=== PATIENT | female | born 1995 | race Caucasian/White ===

== ENCOUNTER 2016-09-14 18:28 | Emergency (ER) | payer OTHER ==
--- NOTE | 2016-09-14 19:32 | UC ---
UC General HPI - HPI Summary HPI Summary: complaint of N/V/D started feeling nauseous and stomach cramping then started to have diarrhea 2 days ago N/V/D continued still having nausea today- vomiting has continued - no diarrhea today has only had coffee today because she has been at work- has been able to eat today tonight she started N/V again denies fever and chills hx of difficulty with bowel movements for 3 years- sees Dr Sarmiento sees OB for menstrual cramping - on depo which has improved her menstrual cramping - History of Current Complaint Stated Complaint: VOMITING Time Seen by Provider: 09/14/16 19:22 Hx Obtained From: Patient - Allergy/Home Medications Allergies/Adverse Reactions: Allergies Allergy/AdvReac Type Severity Reaction Status Date / Time seasonal allergies Allergy Congestion Uncoded 09/14/16 19:48 PMH/Surg Hx/FS Hx/Imm Hx Previously Healthy: No - chronic constipation Endocrine History Of: Denies: Diabetes Cardiovascular History Of: Denies: Hypertension, Pacemaker/ICD Respiratory History Of: Reports: Asthma - Surgical History Surgical History: None - Family History Known Family History: Positive: None, Diabetes Negative: Cardiac Disease, Hypertension - Social History Occupation: Employed Full-time, Student Alcohol Use: None Substance Use Type: None Smoking Status (MU): Never Smoked Tobacco - Immunization History Most Recent Influenza Vaccination: [id number] Vaccination Up to Date: Yes Review of Systems Constitutional: Negative Skin: Negative Eyes: Negative ENT: Negative Respiratory: Negative Cardiovascular: Negative Gastrointestinal: Vomiting, Diarrhea Genitourinary: Negative Motor: Negative Neurovascular: Negative Musculoskeletal: Negative Neurological: Negative Psychological: Negative All Other Systems Reviewed And Are Negative: Yes Physical Exam Triage Information Reviewed: Yes Appearance: No Pain Distress, Well-Nourished Vital Signs Reviewed: Yes Eyes: Positive: Conjunctiva Clear ENT: Positive: Pharynx normal, TMs normal. Negative: Nasal congestion Neck: Positive: No Lymphadenopathy Respiratory: Positive: Lungs clear, Normal breath sounds, No respiratory distress Cardiovascular: Positive: RRR, No Murmur, Pulses Normal Abdomen Description: Positive: Nontender, No Organomegaly, Soft. Negative: CVA Tenderness (R), CVA Tenderness (L), Distended, Guarding Bowel Sounds: Positive: Hyperactive Musculoskeletal: Positive: No Edema Neurological: Positive: Alert Psychological Exam: Normal Skin Exam: Normal Course/Dx - Course Course Of Treatment: exam completed. will treat for gastroenteritis d/t no fever or acute abdominal pain - Differential Dx - Multi-Symptom Provider Diagnoses: gastroenteritis Discharge - Discharge Plan Condition: Stable Disposition: HOME Prescriptions: Ondansetron TAB* [Zofran Tab*] 4 mg PO Q8H PRN #12 tab PRN Reason: Nausea Patient Education Materials: Gastroenteritis (ED) Referrals: Adelaida Laguna MD [Primary Care Provider] - Additional Instructions: GASTROENTERITIS What is Gastroenteritis? Gastroenteritis is an inflammation of the stomach and bowel that is often called the stomach "flu.'' It should only last 1 or 2 days. You usually get gastroenteritis because you've been in contact with someone who's already infected or because you've eaten contaminated food, or drank contaminated water. Many different viruses can cause intestinal problems but the signs and symptoms are usually the same: watery diarrhea, abdominal cramps, and nausea or vomiting. Symptoms Might Include: Abdominal cramps Diarrhea Nausea Vomiting Blood or mucus in stools Muscle aches Headaches Fever Extreme exhaustion Treatment Recommendations: Decrease activity until you feel better or the diarrhea and vomiting are gone. Take clear liquids, such as sofia miky, cola, water, tea, broth, and gelatin, for the first 24 hours or until the diarrhea and vomiting stops. During the next 24 hours you may eat bland foods like cooked cereals, rice, soup , bread, crackers, baked potatoes, eggs, or applesauce. Do not eat fruits, vegetables, fried or spicy foods, bran, candy, dairy products (such as milk or ice cream), apple juice, alcoholic beverages. You may go back to your normal diet after 2 to 3 days. Drink 8 to 12 glasses of liquid a day. Most of the problems with gastroenteritis are caused by loss of water through vomiting and diarrhea. You may take ibuprofen (Motrin, Advil) or acetaminophen (Tylenol) for fever and muscle aches. Call Your Doctor or Return Here IF: Your symptoms last for more than 3 days. You have severe pain in the abdomen (area around the stomach) or rectum. You have a high temperature. You find blood, mucus, or worms in your stool. You have signs of dehydration (water loss), including dry mouth, excessive thirst, crinkled skin, little or no urination, dizziness, or light-headedness. You have any other new symptoms that worry you.
[2016-09-14] MEDS ORDERED: Ondansetron ODT TAB* 4 MG PO ONE ×2 (19:37→19:57)
[2016-09-14 19:48] VITALS: BP 119/64
== END 2016-09-14 20:15 | disposition home or self-care (01) ==
LOC: UCCORT 18:28
DX: K52.9 Noninfective gastroenteritis and colitis, unspecified (principal)
CPT/HCPCS: 99212; A9270-GY; G0463

== ENCOUNTER 2017-08-09 20:44 | Emergency (ER) | payer OTHER ==
[2017-08-09 21:15] VITALS: BP 117/89
[2017-08-09] MEDS ORDERED: predniSONE TAB* 20 MG PO ONE (21:58)
[2017-08-09] MEDS ORDERED: Albuterol/Ipratropium NEB.SOL* Albuterol 2.5 MG/Ipratropium 0.5 MG 3 ML INH ONE (21:58)
[2017-08-09] MEDS ORDERED: Azithromycin TAB* 250 MG PO ONE (21:58)
[2017-08-09] MEDS ORDERED: Albuterol HFA INHALER* 8 gm MDI INH ONE (21:59)
--- NOTE | 2017-08-09 22:00 | UC ---
Respiratory Complaint HPI - HPI Summary HPI Summary: Harsh cough sore throat 1 month ago dx with sinusitis unable to finish Amoxicillin due to nausea - History of Current Complaint Chief Complaint: UCGeneralIllness Stated Complaint: COUGH,CONGESTION Time Seen by Provider: 08/09/17 21:54 Hx Obtained From: Patient Hx Last Menstrual Period: DAY 1 TODAY ?: No Onset/Duration: Gradual Onset, Lasting Weeks, Still Present Timing: Constant Severity Initially: Moderate Severity Currently: Severe Character: Cough: Nonproductive Aggravating Factors: Deep Breaths, Recumbent Position Alleviating Factors: Nothing Associated Signs And Symptoms: Positive: Pleuritic Chest Pain, URI, Nasal Congestion, Sinus Discomfort - Allergies/Home Medications Allergies/Adverse Reactions: Allergies Allergy/AdvReac Type Severity Reaction Status Date / Time seasonal allergies Allergy Congestion Uncoded 08/09/17 21:15 Home Medications: Home Medications Bcp 1 tab PO DAILY 08/09/17 [History Confirmed 08/09/17] Phenylephrine W/ Dm-GG [Mucinex Congestion & Coug 2.5-5-100 mg/5Ml] 1 liq PO DAILY 08/09/17 [History Confirmed 08/09/17] Sertraline* [Zoloft*] 200 mg PO DAILY 08/09/17 [History Confirmed 08/09/17] hydrOXYzine HCL TAB* [Atarax TAB 50 MG *] 100 mg PO BEDTIME PRN 08/09/17 [ History Confirmed 08/09/17] PMH/Surg Hx/FS Hx/Imm Hx Previously Healthy: No Respiratory History: Asthma - Surgical History Surgical History: Yes Surgery Procedure, Year, and Place: WISDOM TEETH EXTRACTIONS - Family History Known Family History: Positive: None, Diabetes Negative: Cardiac Disease, Hypertension - Social History Occupation: Student Lives: With Family Alcohol Use: Occasionally Substance Use Type: None Smoking Status (MU): Never Smoked Tobacco - Immunization History Most Recent Influenza Vaccination: [id number] Vaccination Up to Date: Yes Review of Systems Constitutional: Negative Skin: Negative Eyes: Negative ENT: Sore Throat Respiratory: Cough Cardiovascular: Negative Gastrointestinal: Negative Genitourinary: Negative Motor: Negative Neurovascular: Negative Musculoskeletal: Negative Neurological: Negative Psychological: Negative Is Patient Immunocompromised?: No All Other Systems Reviewed And Are Negative: Yes Physical Exam Triage Information Reviewed: Yes Appearance: Well-Appearing, No Pain Distress, Well-Nourished Vital Signs: Initial Vital Signs Temp 97.9 F 08/09/17 21:00 Pulse 80 08/09/17 21:00 Resp 20 08/09/17 21:00 BP 117/89 08/09/17 21:00 Pulse Ox 100 08/09/17 21:00 Vital Signs Reviewed: Yes Eye Exam: Normal Eyes: Positive: Conjunctiva Clear ENT Exam: Normal ENT: Positive: Normal ENT inspection, Hearing grossly normal, Pharynx normal, TMs normal, Uvula midline. Negative: Nasal congestion, Nasal drainage, Tonsillar swelling, Tonsillar exudate, Trismus, Muffled voice, Hoarse voice, Dental tenderness, Sinus tenderness Dental Exam: Normal Neck exam: Normal Neck: Positive: Supple, Nontender, No Lymphadenopathy Respiratory Exam: Normal Respiratory: Positive: Chest non-tender, Lungs clear, No respiratory distress, No accessory muscle use, Decreased breath sounds Cardiovascular Exam: Normal Cardiovascular: Positive: RRR, No Murmur, Pulses Normal, Brisk Capillary Refill Musculoskeletal Exam: Normal Musculoskeletal: Positive: Strength Intact, ROM Intact, No Edema Neurological Exam: Normal Neurological: Positive: Alert, Muscle Tone Normal Psychological Exam: Normal Skin Exam: Normal UC Diagnostic Evaluation - Laboratory O2 Sat by Pulse Oximetry: 100 Re-Evaluation - Re-Evaluation First Eval Change: Improved - feels better increase aeration after neb Respiratory Course/Dx - Course Course Of Treatment: Prednisone, zithromax albuterol mdi with spacer, increase fluids follow with pcp prn - Differential Dx/Diagnosis Provider Diagnoses: Bronchitis with Bronchospasm Discharge - Discharge Plan Condition: Stable Disposition: HOME Prescriptions: Albuterol HFA INHALER* [Ventolin HFA Inhaler*] 2 puff INH Q4H PRN #1 mdi PRN Reason: cough/chest tightness Azithromycin TAB* [Zithromax TAB (Z-ENMANUEL) 250 mg #6 tabs] 250 mg PO DAILY #4 tab predniSONE TAB* [Deltasone TAB*] 40 mg PO DAILY #9 tab Patient Education Materials: Acute Bronchitis (ED), Bronchospasm (ED), How to Use a Metered-Dose Inhaler and a Spacer (ED) Referrals: Adelaida Laguna MD [Primary Care Provider] - If Needed
== END 2017-08-09 22:35 | disposition home or self-care (01) ==
LOC: UCCORT 20:44
DX: J20.9 Acute bronchitis, unspecified (principal); J45.909 Unspecified asthma, uncomplicated
CPT/HCPCS: 99213; A9270-GY; G0463; J7512

== ENCOUNTER 2017-10-27 15:47 | Emergency (ER) | payer OTHER ==
--- NOTE | 2017-10-27 16:20 | UC ---
UC General HPI - HPI Summary HPI Summary: pt is c/o sudden onset fever, chills, nasal congestion, headache and cough since this past friday. pt also notes she hasn't has a BM for a week and is having abdominal cramping with some nausea. she states this has been going on for about 3 years. she is under the care of Dr Peck who thinks this may be ovarian cyst and/or endometriosis related. she notes that he is monitoring this for now. she has been prescribed miralax in past but hasn't tried it for this bout of constipation. pt offers she recently stopped her BC and may be ovulating making it feel a little worse. no assoc v/d/dysuria or vaginal discharge. - History of Current Complaint Stated Complaint: ABDOMINAL PAIN, FEVER, RESP Time Seen by Provider: 10/27/17 15:59 Hx Obtained From: Patient Hx Last Menstrual Period: DAY 1 TODAY Onset/Duration: Sudden Onset Timing: Constant Aggravating: nothing Alleviating: nothing Associated Signs & Symptoms: Positive: Cough, Fever, Headache. Negative: Diarrhea, Dysuria, SOB, Vomiting - Allergy/Home Medications Allergies/Adverse Reactions: Allergies Allergy/AdvReac Type Severity Reaction Status Date / Time seasonal allergies Allergy Congestion Uncoded 10/27/17 16:05 Home Medications: Home Medications Bupropion XL* [Wellbutrin XL *] 150 mg PO DAILY 10/27/17 [History Confirmed ] Folic Acid TAB* [Folvite TAB*] 1 mg PO DAILY 10/27/17 [History Confirmed ] Phenylephrine/Dm/Acetaminop/GG [Mucinex Fast-Max Cold-Flu Liq] 10 ml PO DAILY PRN 10/27/17 [History Confirmed 10/27/17] Polyethylene Glycol 3350* [Miralax*] 17 gm PO DAILY PRN 10/27/17 [History Confirmed 10/27/17] Vit,Brown 74/Iron/Folic [ Low Iron Tablet] 1 each PO DAILY [History Confirmed 10/27/17] PMH/Surg Hx/FS Hx/Imm Hx Respiratory History: Asthma - Surgical History Surgical History: Yes Surgery Procedure, Year, and Place: WISDOM TEETH EXTRACTIONS - Family History Known Family History: Positive: None, Diabetes Negative: Cardiac Disease, Hypertension - Social History Occupation: Employed Part-time, Student Alcohol Use: Occasionally Substance Use Type: None Smoking Status (MU): Never Smoked Tobacco - Immunization History Most Recent Influenza Vaccination: 1480-0087 Vaccination Up to Date: Yes Review of Systems Constitutional: Fever, Chills Skin: Negative Eyes: Negative ENT: Sinus Congestion Respiratory: Cough Cardiovascular: Negative Gastrointestinal: Negative Genitourinary: Negative Motor: Negative Neurovascular: Negative Musculoskeletal: Negative Neurological: Headache Psychological: Negative Is Patient Immunocompromised?: No All Other Systems Reviewed And Are Negative: Yes Physical Exam Triage Information Reviewed: Yes Appearance: Well-Appearing Vital Signs Reviewed: Yes Eye Exam: Normal ENT: Positive: Pharynx normal, Nasal congestion, TMs normal Neck: Positive: Supple, Nontender, No Lymphadenopathy Respiratory: Positive: Lungs clear, Normal breath sounds, No respiratory distress Cardiovascular: Positive: RRR, No Murmur Abdomen Description: Positive: Nontender, No Organomegaly, Soft. Negative: CVA Tenderness (R), CVA Tenderness (L), Distended, Guarding Bowel Sounds: Positive: Present Musculoskeletal: Positive: No Edema Neurological: Positive: Alert Psychological: Positive: Age Appropriate Behavior Skin Exam: Normal Diagnostics - Laboratory Diagnostic Studies Completed/Ordered: urine hcg and rapid flu are negative Course/Dx - Course Course Of Treatment: the acute complaint was rapid flu neg; however, it is JELENA. there is nothing to suggest a bacterial infection. her abdominal complaint is a chronic issue being monitored by her OB, she does not have an acute abdomen here and the hcg is negative. she may resume her miralax for the constipation. i will refer pt back to her pcp's - Differential Dx - Multi-Symptom Provider Diagnoses: Influenza like illness. chronic abdominal discomfort. constipation. Discharge - Discharge Plan Condition: Stable Disposition: HOME Patient Education Materials: Influenza (DC), Constipation (ED), Abdominal Pain (ED) Referrals: Adelaida Laguna MD [Primary Care Provider] - 5 Days Ramos Peck MD [Medical Doctor] - As Soon As Possible
[2017-10-27 16:29] VITALS: BP 112/69
== END 2017-10-27 17:13 | disposition home or self-care (01) ==
LOC: UCCORT 15:47
DX: R50.9 Fever, unspecified (principal); R09.81 Nasal congestion; R51 Headache; R05 Cough; K59.00 Constipation, unspecified; Z32.02 Encounter for pregnancy test, result negative
CPT/HCPCS: 84702; 87502; 99211; G0463

== ENCOUNTER 2018-01-21 17:00 | Emergency (ER) | payer OTHER ==
[2018-01-21 17:40] VITALS: BP 118/69
--- NOTE | 2018-01-21 18:05 | UC ---
Complaint Female HPI - HPI Summary HPI Summary: Pt c/o urinary frequency, urgency and dysuria X 3 days. Pt also concerned about vaginal yeast infection. Pt discovered she is last night. LMP - History Of Current Complaint Chief Complaint: UCGU Stated Complaint: URINARY (PREG) Time Seen by Provider: 01/21/18 17:48 Hx Obtained From: Patient Hx Last Menstrual Period: 10/31/17, states irregular ?: Yes Onset/Duration: Sudden Onset, Lasting Days, Still Present Timing: Intermittent Severity Initially: Mild Severity Currently: Mild Pain Intensity: 4 Character: Burning Aggravating Factor(s): Urination Associated Signs And Symptoms: Positive: Vaginal Discharge - yellow - Risk Factors Ectopic Risk Factor: Negative Ovarian Torsion Risk Factor: Reproductive Age - Allergies/Home Medications Allergies/Adverse Reactions: Allergies Allergy/AdvReac Type Severity Reaction Status Date / Time seasonal allergies Allergy Congestion Uncoded 01/21/18 17:36 PMH/Surg Hx/FS Hx/Imm Hx Previously Healthy: Yes - Surgical History Surgical History: Yes Surgery Procedure, Year, and Place: WISDOM TEETH EXTRACTIONS - Family History Known Family History: Positive: None, Diabetes Negative: Cardiac Disease, Hypertension - Social History Occupation: Employed Full-time Lives: With Family Alcohol Use: Occasionally Substance Use Type: None Smoking Status (MU): Never Smoked Tobacco Have You Smoked in the Last Year: No - Immunization History Most Recent Influenza Vaccination: 5325-1264 Vaccination Up to Date: Yes Review of Systems Constitutional: Negative Skin: Negative Eyes: Negative ENT: Negative Respiratory: Negative Cardiovascular: Negative Gastrointestinal: Negative Genitourinary: Dysuria, Frequency, Urgency, Vaginal/Penile Discharge Motor: Negative Neurovascular: Negative Musculoskeletal: Negative Neurological: Negative Psychological: Negative Is Patient Immunocompromised?: No All Other Systems Reviewed And Are Negative: Yes Physical Exam Triage Information Reviewed: Yes Appearance: Well-Appearing Vital Signs: Initial Vital Signs Temp 98.8 F 01/21/18 17:33 Pulse 68 01/21/18 17:33 Resp 17 01/21/18 17:33 BP 118/69 01/21/18 17:33 Pulse Ox 99 01/21/18 17:33 Vital Signs Reviewed: Yes Eye Exam: Normal ENT Exam: Normal ENT: Positive: Hearing grossly normal Dental Exam: Normal Neck exam: Normal Respiratory Exam: Normal Cardiovascular Exam: Normal Abdominal Exam: Normal Musculoskeletal Exam: Normal Neurological Exam: Normal Psychological Exam: Normal Skin Exam: Normal Complaint Female Dx - Differential Dx/Diagnosis Differential Diagnosis/HQI/PQRI: , Sexually Transmitted Disease, Urinary Tract Infection Provider Diagnoses: UTI. vaginitis Discharge - Sign-Out/Discharge Documenting (check all that apply): Discharge/Admit/Transfer - Discharge Plan Condition: Stable Disposition: HOME Prescriptions: Cephalexin CAP* [Keflex 500 CAP*] 500 mg PO Q12H #14 cap Miconazole Nitrate [Monistat 3 Combination Pa 200-2 mg-% (9Gm)] 1 kit [facility] BEDTIME #1 kit Patient Education Materials: (ED), Urinary Tract Infection in Women ( ED), Vaginitis (ED) Referrals: Adelaida Laguna MD [Primary Care Provider] - Additional Instructions: Please follow up with your PCP and your OB provider as scheduled or needed. - Billing Disposition and Condition Condition: STABLE Disposition: HOME
== END 2018-01-21 18:24 | disposition home or self-care (01) ==
LOC: UCCORT 17:00
DX: O23.40 Unspecified infection of urinary tract in pregnancy, unspecified trimester (principal); O23.599 Infection of other part of genital tract in pregnancy, unspecified trimester; N76.0 Acute vaginitis; Z3A.00 Weeks of gestation of pregnancy not specified
CPT/HCPCS: 81003; 84702; 87086; 87480; 87491; 87510; 87591; 87660; 99212; G0463

== ENCOUNTER 2018-03-02 17:20 | Emergency (ER) | payer OTHER ==
[2018-03-02 17:41] VITALS: BP 116/73
--- NOTE | 2018-03-02 18:19 | UC ---
Complaint Female HPI - HPI Summary HPI Summary: Pt c/o gradual o nset of left side flank pain, that radiates to LLQ. Pt is 10 weeks . denies, vaginal bleeding or unusual discharge. - History Of Current Complaint Hx Obtained From: Patient Hx Last Menstrual Period: 10/31/17, states irregular ?: Yes Onset/Duration: Gradual Onset, Lasting Days, Still Present, Worse Since Timing: Constant Severity Initially: Mild Severity Currently: Moderate Pain Intensity: 8 Character: Dull, Colicy Aggravating Factor(s): Nothing Alleviating Factor(s): Nothing Associated Signs And Symptoms: Positive: Back Pain - Risk Factors Ectopic Risk Factor: Negative Ovarian Torsion Risk Factor: Reproductive Age <Chaya Dawn NP - Last Filed: 03/02/18 18:14> <Ana Maria Parker - Last Filed: 03/02/18 19:31> - History Of Current Complaint Chief Complaint: UCGeneralIllness Stated Complaint: BACK PAIN Time Seen by Provider: 03/02/18 17:49 - Allergies/Home Medications Allergies/Adverse Reactions: Allergies Allergy/AdvReac Type Severity Reaction Status Date / Time cephalexin [From Keflex] Allergy Rash And Verified 03/02/18 17:42 Itching seasonal allergies Allergy Congestion Uncoded 01/21/18 17:36 Home Medications: Home Medications Acetaminophen TAB* [Tylenol TAB*] 1,000 mg PO Q4H PRN 03/02/18 [History Confirmed 03/02/18] PMH/Surg Hx/FS Hx/Imm Hx Previously Healthy: Yes - Surgical History Surgical History: Yes Surgery Procedure, Year, and Place: WISDOM TEETH EXTRACTIONS - Family History Known Family History: Positive: None, Diabetes Negative: Cardiac Disease, Hypertension - Social History Occupation: Employed Full-time Lives: With Family Alcohol Use: Occasionally Substance Use Type: None Smoking Status (MU): Never Smoked Tobacco Have You Smoked in the Last Year: No - Immunization History Most Recent Influenza Vaccination: [id number] Vaccination Up to Date: Yes <Chaya Dawn NP - Last Filed: 03/02/18 18:14> Review of Systems Constitutional: Negative Skin: Negative Eyes: Negative ENT: Negative Respiratory: Negative Cardiovascular: Negative Gastrointestinal: Negative Genitourinary: Frequency, Other - left jade eflank pain Motor: Negative Neurovascular: Negative Musculoskeletal: Negative Neurological: Negative Psychological: Negative Is Patient Immunocompromised?: No All Other Systems Reviewed And Are Negative: Yes <Chaya Dawn NP - Last Filed: 03/02/18 18:14> Physical Exam Triage Information Reviewed: Yes Appearance: Pain Distress Vital Signs: Initial Vital Signs Temp 98.1 F 03/02/18 17:36 Pulse 72 03/02/18 17:36 Resp 20 03/02/18 17:36 BP 116/73 03/02/18 17:36 Pulse Ox 100 03/02/18 17:36 Vital Signs Reviewed: Yes Eye Exam: Normal ENT Exam: Normal Dental Exam: Normal Neck exam: Normal Respiratory Exam: Normal Respiratory: Positive: No respiratory distress Abdominal Exam: Other Abdomen Description: Positive: CVA Tenderness (L) Musculoskeletal Exam: Normal Neurological Exam: Normal Psychological Exam: Normal Skin Exam: Normal <Chaya Dawn NP - Last Filed: 03/02/18 18:14> Vital Signs: Initial Vital Signs Temp 98.1 F 03/02/18 17:36 Pulse 72 03/02/18 17:36 Resp 20 03/02/18 17:36 BP 116/73 03/02/18 17:36 Pulse Ox 100 03/02/18 17:36 <Ana Maria Parker - Last Filed: 03/02/18 19:31> Complaint Female Dx - Course Course Of Treatment: I discussed with the pt the possibility of kidney stone and limitation of imaging due to . Pt verbalized understanding and agreed to plan of care. - Differential Dx/Diagnosis Differential Diagnosis/HQI/PQRI: Urinary Tract Infection, Other - kidney stone Provider Diagnoses: UTI. flank pain <Chaya Dawn NP - Last Filed: 03/02/18 18:14> Discharge - Sign-Out/Discharge Documenting (check all that apply): Discharge/Admit/Transfer - Billing Disposition and Condition Condition: STABLE Disposition: Home <Chaya Dawn NP Last Filed: 03/02/18 18:14> - Billing Disposition and Condition Condition: STABLE Disposition: Home <Ana Maria Parker - Last Filed: 03/02/18 19:31> - Discharge Plan Condition: Stable Disposition: HOME Prescriptions: Nitrofurantoin Monohyd/M-Cryst [Macrobid 100 mg Capsule] 100 mg PO Q12H #14 cap Patient Education Materials: Urinary Tract Infection in Women (ED), Flank Pain (ED) Referrals: Adelaida Laguna MD [Primary Care Provider] - If Needed Attestation Statement User Type: Provider - I was available for consult. This patient was seen by the IZABELA. The patient was not presented to, seen by, or examined by me. -Darlin <Ana Maria Parker - Last Filed: 03/02/18 19:31>
== END 2018-03-02 18:18 | disposition home or self-care (01) ==
LOC: UCCORT 17:20
DX: N39.0 Urinary tract infection, site not specified (principal); R10.9 Unspecified abdominal pain; Z88.1 Allergy status to other antibiotic agents; Z91.09 Other allergy status, other than to drugs and biological substances
CPT/HCPCS: 81003; 87086; 99212; G0463

== ENCOUNTER 2018-07-09 15:40 | Emergency (ER) | payer OTHER ==
[2018-07-09 16:06] VITALS: BP 114/62
--- NOTE | 2018-07-09 16:30 | ED ---
Throat Pain/Nasal Congestion - HPI Summary HPI Summary: 23 yr old female with the complaint of sinus pressure, post nasal drip, nasal yellow drainage. Onset about a month ago. She thought it was allergies but has not gotten better. She is 28 weeks at this point. She has had sinus infections before. - History of Current Complaint Chief Complaint: UCRespiratory Time Seen by Provider: 07/09/18 16:19 - Allergies/Home Medications Allergies/Adverse Reactions: Allergies Allergy/AdvReac Type Severity Reaction Status Date / Time cephalexin [From Keflex] Allergy Rash And Verified 07/09/18 15:57 Itching seasonal allergies Allergy Congestion Uncoded 07/09/18 15:57 Home Medications: Home Medications Docusate CAP* [Colace Cap*] 1 cap BID 07/09/18 [History Confirmed 07/09/18] Iron 1 tab DAILY 07/09/18 [History Confirmed 07/09/18] Loratadine [Claritin 10 MG CAP] 1 cap DAILY 07/09/18 [History Confirmed 07/09/18 ] PMH/Surg Hx/FS Hx/Imm Hx Endocrine/Hematology History: Denies: Hx Diabetes Cardiovascular History: Denies: Hx Hypertension, Hx Pacemaker/ICD Respiratory History: Reports: Hx Asthma Sensory History: Denies: Hx Hearing Aid Psychiatric History: Denies: Hx Panic Disorder - Surgical History Surgery Procedure, Year, and Place: WISDOM TEETH EXTRACTIONS Infectious Disease History: No Infectious Disease History: Denies: History Other Infectious Disease, Traveled Outside the [place] in Last 30 Days - Family History Known Family History: Positive: None, Diabetes Negative: Cardiac Disease, Hypertension - Social History Alcohol Use: None Substance Use Type: Reports: None Smoking Status (MU): Never Smoked Tobacco Have You Smoked in the Last Year: No Review of Systems Positive: Nasal Discharge, Other - sinus pressure, post nasal drip. All Other Systems Reviewed And Are Negative: Yes Physical Exam Triage Information Reviewed: Yes Vital Signs On Initial Exam: Initial Vitals Temp Pulse Resp BP Pulse Ox 97.6 F 79 16 114/62 98 07/09/18 15:59 07/09/18 15:59 07/09/18 15:59 07/09/18 15:59 07/09/18 15:59 Vital Signs Reviewed: Yes Appearance: Positive: Well-Appearing, No Pain Distress Skin: Positive: Warm, Skin Color Reflects Adequate Perfusion Head/Face: Positive: Normal Head/Face Inspection Eyes: Positive: EOMI ENT: Positive: Pharynx normal, Nasal congestion, Nasal drainage, TMs normal, Sinus tenderness - bilateral frontal sinuses Neck: Positive: Nontender Respiratory/Lung Sounds: Positive: Clear to Auscultation, Breath Sounds Present Cardiovascular: Positive: RRR. Negative: Murmur Abdomen Description: Negative: Distended Musculoskeletal: Positive: Strength/ROM Intact Neurological: Positive: Sensory/Motor Intact, Alert, Oriented to Person Place, Time, CN Intact II-III Psychiatric: Positive: Normal - Nick Coma Scale Best Eye Response: 4 - Spontaneous Best Motor Response: 6 - Obeys Commands Best Verbal Response: 5 - Oriented Coma Scale Total: 15 Diagnostics - Vital Signs Vital Signs Temp Pulse Resp BP Pulse Ox 07/09/18 15:59 97.6 F 79 16 114/62 98 - Laboratory Lab Results: Lab Results 07/09/18 Range/Units 16:14 Group A Strep Rapid Negative (Negative) Lab Statement: Any lab studies that have been ordered have been reviewed, and results considered in the medical decision making process. EENT Course/Dx - Course Course Of Treatment: 23 yr old female with sinusitis. Rx with zithromax. She has allergies to cephalexin. - Diagnoses Provider Diagnoses: Sinusitis Discharge - Sign-Out/Discharge Documenting (check all that apply): Patient Departure All imaging exams completed and their final reports reviewed: No Studies - Discharge Plan Condition: Good Disposition: HOME Prescriptions: Azithromycin TAB* [Zithromax TAB (Z-ENMANUEL) 250 mg #6 tabs] 2 tab PO .TODAY, THEN 1 DAILY #1 enmanuel Patient Education Materials: Sinusitis (ED) Referrals: Wanda Marrufo PA [Primary Care Provider] - - Billing Disposition and Condition Condition: GOOD Disposition: Home
== END 2018-07-09 16:33 | disposition home or self-care (01) ==
LOC: UCCORT 15:40
DX: O26.93 Pregnancy related conditions, unspecified, third trimester (principal); J01.90 Acute sinusitis, unspecified; Z3A.28 28 weeks gestation of pregnancy
CPT/HCPCS: 87651; 99212; G0463